=== PATIENT | male | born 1970 | race Caucasian/White ===

== ENCOUNTER 2023-02-14 07:46 | Emergency (ER) | payer OTHER ==
[~2023-02-14] VITALS: Ht 162.6 cm; Wt 97.5 kg
[2023-02-14 07:58] VITALS: BP_SYST 127
[2023-02-14] MEDS ORDERED: MORPHINE 4 MG INJ. 4 MG/ML VIAL IVP ONE (08:15)
[2023-02-14] MEDS ORDERED: NACL 0.9% 1,000 ML IV ONE (08:15)
[2023-02-14] MEDS ORDERED: ONDANSETRON HCL 4 MG/2 ML VIAL IVP ONE (08:15)
[2023-02-14 08:34] LABS: BASOPHILS % (AUTO) 0.1 % (0.0-2.0); EOSINOPHILS # (AUTO) 0.2 K/uL (0.0-0.4); EOSINOPHILS % (AUTO) 2.4 % (0.0-4.0); HEMATOCRIT 51.8 % (36-54); HEMOGLOBIN 17.5 g/dL (14.0-18.0); LYMPHOCYTES # (AUTO) 2.5 K/uL (1.0-5.5); LYMPHOCYTES % (AUTO) 34.3 % (20.5-51.5); MEAN CORPUSCULAR HEMOGLOBIN 30 pg (27-31); MEAN CORPUSCULAR HGB CONC 34 % (32-36); MEAN CORPUSCULAR VOLUME 89 fL (79.0-98.0); MONOCYTES # (AUTO) 0.7 K/uL (0.0-1.0); MONOCYTES % (AUTO) 8.8 % (1.7-9.3); NEUTROPHILS % (AUTO) 54.4 % (40.0-70.0); PLATELET COUNT (AUTO) 298 K/uL (130-430); RED BLOOD CELL COUNT(AUTO) 5.82 MIL/uL (4.2-6.2); RED CELL DISTRIBUTION WIDTH 13.2 % (9.0-15.0); WHITE BLOOD COUNT (AUTO) 7.4 K/uL (4.8-10.8)
[2023-02-14 08:55] LABS: CALCIUM 9.3 mg/dL (8.4-11.0); CREATININE 1.2 mg/dL (0.55-1.30); TOTAL BILIRUBIN 1.4 mg/dL (0.0-1.0)
[2023-02-14] MEDS ORDERED: AUG875 PO (09:28)
[2023-02-14] MEDS ORDERED: IBUP-1969 PO (09:28)
[2023-02-14] MEDS ORDERED: ONDA-8 TL (09:29)
[2023-02-14] MEDS ORDERED: TRAM50TA2 PO (09:29)
[2023-02-14 10:15] VITALS: BP_SYST 127
[2023-02-14 10:39] LABS: BILIRUBIN,URINE NEGATIVE (NEGATIVE); CLARITY/URINE CLEAR (CLEAR); COLOR,URINE YELLOW (YELLOW); GLUCOSE,URINE NEGATIVE (NEGATIVE); KETONES,URINE NEGATIVE (NEGATIVE); LEUKOCYTE ESTERASE ,URINE NEGATIVE (NEGATIVE); NITRITE, URINE NEGATIVE (NEGATIVE); PH,URINE 7.5 (5.0-8.0); PROTEIN URINE NEGATIVE (NEGATIVE); UROBILINOGEN,URINE 0.2 (0.2-1.0)
[2023-02-14 10:43] LABS: BLOOD, URINE TRACE (NEGATIVE)
[2023-02-14 11:19] LABS: BACTERIA,URINE RARE /HPF (None Seen); WBC,URINE 0-3 /HPF (0-3)
[2023-02-14 11:20] LABS: MUCUS,URINE 3+ /LPF (None Seen)
== END 2023-02-14 10:14 | disposition home or self-care (01) ==
LOC: SED 07:46
DX: K63.89 Other specified diseases of intestine (principal); R10.32 Left lower quadrant pain; Z79.899 Other long term (current) drug therapy
CPT/HCPCS: 99285; 74176; 96374; 96361; 80053; 81000; 83690; 85025; 36415; 76376; J2405; J2270; J7030